=== PATIENT | female | born 1970 | race Caucasian/White ===

== ENCOUNTER 2021-01-28 19:42 | Emergency (ER) | payer SELFPAY ==
[~2021-01-28] VITALS: Ht 165.1 cm; Wt 60.0 kg
[2021-01-28 19:51] VITALS: BP 97/62
== END 2021-01-28 21:07 | disposition left against medical advice (07) ==
LOC: ER 20:04
DX: Z53.21 Procedure and treatment not carried out due to patient leaving prior to being seen by health care provider (principal)
CPT/HCPCS: 93005